=== PATIENT | female | born 1985 | race Caucasian/White ===

== ENCOUNTER → 2017-02-22 09:37 | Emergency (ER) | payer BC ==
--- NOTE | 2017-02-22 10:12 | ED ---
Throat Pain/Nasal Congestion - HPI Summary HPI Summary: 31F presents with burn to left side of face and to left eye. She was poaching an egg and it exploded onto her face. She does not wear contacts or glasses. She admits to tearing and blurry vision of left eye. She washed her eye afterwards. She has not placed anything on the area. She denies any double vision. Pain is minimal when she places ice on the area. She states otherwise it is 5/10. - History of Current Complaint Chief Complaint: EDEyeProblem Time Seen by Provider: 02/22/17 09:52 PMH/Surg Hx/FS Hx/Imm Hx Endocrine/Hematology History: Denies: Hx Anticoagulant Therapy Neurological History: Reports: Hx Migraine Infectious Disease History: Denies: Traveled Outside the [place] in Last 30 Days - Family History Known Family History: Positive: Other - migraine - Social History Alcohol Use: None Substance Use Type: Reports: None Smoking Status (MU): Never Smoked Tobacco Review of Systems Negative: Fever Positive: Blurred Vision, Drainage Negative: Chest Pain Negative: Shortness Of Breath All Other Systems Reviewed And Are Negative: Yes Physical Exam Triage Information Reviewed: Yes Vital Signs On Initial Exam: Initial Vitals Temp Resp BP Pulse Ox 98.6 F 20 143/89 100 02/22/17 09:40 02/22/17 09:40 02/22/17 09:40 02/22/17 09:40 Vital Signs Reviewed: Yes Appearance: Positive: Well-Appearing Skin: Positive: Warm, Dry, Other - superficial burn around left eye Head/Face: Positive: Normal Head/Face Inspection Eyes: Positive: Normal, EOMI, MARIAELENA, Conjunctiva Inflammed, Other: - no uptake on fluorscein exam ENT: Positive: Normal ENT inspection, Pharynx normal, TMs normal Respiratory/Lung Sounds: Positive: Clear to Auscultation, Breath Sounds Present Cardiovascular: Positive: Normal, RRR Diagnostics - Vital Signs Vital Signs Temp Resp BP Pulse Ox 02/22/17 09:40 98.6 F 20 143/89 100 - Laboratory Lab Statement: Any lab studies that have been ordered have been reviewed, and results considered in the medical decision making process. EENT Course/Dx - Course Course Of Treatment: 31F presents with burn to left side of face and to left eye. She was poaching an egg and it exploded onto her face. She does not wear contacts or glasses. She admits to tearing and blurry vision of left eye. She washed her eye afterwards. She has not placed anything on the area. She denies any double vision. on exam superficial burn noted around left eye. no uptake on fluorscein exam. told to use artifical tears and gave pain medication. told to follow up with optho if no improvement. patient understands and agrees with plan. - Differential Diagnoses Differential Diagnoses: Conjunctivitis, Corneal Abrasion, Other - superficial burn - Diagnoses Provider Diagnoses: Superficial burn of face, Eye injury Discharge - Discharge Plan Condition: Good Disposition: HOME Prescriptions: oxyCODONE/Acetamin 5/325 MG* [Percocet 5/325 TAB*] 1 tab PO Q6H PRN #8 tab MDD 4 PRN Reason: Pain Patient Education Materials: Superficial Burn (ED) Referrals: Reid Rios MD [Medical Doctor] - Milena Mesa MD [Primary Care Provider] - Additional Instructions: Use artificial tears to keep eye lubricated Take ibuprofen for pain every 6 hour, use narcotic for break through pain You do not need to apply anything to face at this time as it is just a superficial burn Follow up with optho if no improvement in 2 days Return to ED if develop fever, spreading redness, or any new or worsening symptoms
[2017-02-22 10:48] VITALS: BP 116/69
== END | disposition home or self-care (01) ==
LOC: ED 09:37
DX: T20.10XA Burn of first degree of head, face, and neck, unspecified site, initial encounter (principal); S05.90XA Unspecified injury of unspecified eye and orbit, initial encounter; H53.8 Other visual disturbances; X10.1XXA Contact with hot food, initial encounter; Y93.89 Activity, other specified; Y92.9 Unspecified place or not applicable
CPT/HCPCS: 99282

== ENCOUNTER → 2018-08-14 15:44 | Emergency (ER) | payer BC ==
[~2018-08-14 15:44] MED LIST: HYDROmorphone INJ1* 1 MG/ML SYRINGE IV SLOW PU ONE; NS 0.9% 1000 ML** 1,000 ML IV ONE; Ondansetron INJ* 2 MG/ML VIAL IV ONE; PROCHLORPERAZINE INJ 5 MG/ML 2 ML VIAL IV PRN; PROCHLORPERAZINE INJ 5 MG/ML 2 ML VIAL ONE
--- NOTE | 2018-08-14 16:00 | ED ---
Syncope/Near Syncope - HPI Summary HPI Summary: A 32 y/o female presents to [facility] with a chief complaint of abdominal cramping after she was given contrast for imaging the afternoon of 08/14/18. In the room the patient had a HR of 50bpm and a BP of 104/58. She claims that her HR usually runs in the 70s and her normal BP is 120/80. Per triage note, "Pt was CAT call during CT. Reports she had severe abd cramping after injeciton of CT contrast that caused her to have vagal effect. Hypotension initially upon team arrival. Denies LOC." She rates her pain as a 6/10 in severity. - History Of Current Complaint Chief Complaint: EDSyncope Time Seen by Provider: 08/14/18 15:46 Hx Obtained From: Patient Onset/Duration: Sudden Onset, Lasting Minutes, Still Present Timing: Minutes Context: Witnessed Activity At Onset: Other - getting IV contrast Alleviating Factor(s): Nothing Associated Signs And Symptoms: Negative - LOC, Other - Positive: hypotensive - Allergies/Home Medications Allergies/Adverse Reactions: Allergies Allergy/AdvReac Type Severity Reaction Status Date / Time No Known Allergies Allergy Verified 08/14/18 18:32 PMH/Surg Hx/FS Hx/Imm Hx Endocrine/Hematology History: Reports: Hx Anemia Denies: Hx Anticoagulant Therapy, Hx Diabetes Cardiovascular History: Denies: Hx Hypertension, Hx Pacemaker/ICD History: Denies: Hx Renal Disease Musculoskeletal History: Reports: Hx Back Problems Sensory History: Denies: Hx Contacts or Glasses, Hx Hearing Aid Opthamlomology History: Denies: Hx Contacts or Glasses Neurological History: Reports: Hx Migraine, Other Neuro Impairments/Disorders - PAIN CLINIC PT Psychiatric History: Reports: Hx Anxiety Denies: Hx Panic Disorder - Surgical History Surgery Procedure, Year, and Place: discectomy 01/20/2013 - [facility] Infectious Disease History: No Infectious Disease History: Denies: Traveled Outside the [place] in Last 30 Days - Family History Known Family History: Positive: Other - migraine - Social History Alcohol Use: Weekly Alcohol Amount: 5 Substance Use Type: Reports: None Smoking Status (MU): Never Smoked Tobacco Review of Systems Negative: Fever Positive: Other - Positive: hypotensive Positive: Abdominal Pain All Other Systems Reviewed And Are Negative: Yes Physical Exam - Summary Physical Exam Summary: Appearance: The patient is well-nourished in no acute distress and in no acute pain. Skin: The skin is warm and dry and skin color reflects adequate perfusion. HEENT: The head is normocephalic and atraumatic. The pupils are equal and reactive. The conjunctivae are clear and without drainage. Nares are patent and without drainage. Mouth reveals moist mucous membranes and the throat is without erythema and exudate. The external ears are intact. The ear canals are patent and without drainage. The tympanic membranes are intact. Neck: The neck is supple with full range of motion and non-tender. There are no carotid bruits. There is no neck vein distension. Respiratory: Chest is non-tender. Lungs are clear to auscultation and breath sounds are symmetrical and equal. Cardiovascular: Heart is regular rate and rhythm. There is no murmur or rub auscultated. There is no peripheral edema and pulses are symmetrical and equal. Abdomen: The abdomen is soft and non-tender. There are normal bowel sounds heard in all four quadrants and there is no organomegaly palpated. Musculoskeletal: There is no back tenderness noted. Extremities are non-tender with full range of motion. There is good capillary refill. There is no peripheral edema or calf tenderness elicited. Neurological: Patient is alert and oriented to person, place and time. The patient has symmetrical motor strength in all four extremities. Cranial nerves are grossly intact. Deep tendon reflexes are symmetrical and equal in all four extremities. Psychiatric: The patient has an appropriate affect and does not exhibit any anxiety or depression. Triage Information Reviewed: Yes Vital Signs On Initial Exam: Initial Vitals Temp Pulse Resp BP Pulse Ox 97.6 F 47 15 104/58 100 08/14/18 15:45 08/14/18 15:45 08/14/18 15:45 08/14/18 15:45 08/14/18 15:45 Vital Signs Reviewed: Yes Diagnostics - Vital Signs Vital Signs Temp Pulse Resp BP Pulse Ox 08/14/18 15:45 97.6 F 47 15 104/58 100 - Laboratory Result Diagrams: 08/14/18 16:06 Lab Statement: Any lab studies that have been ordered have been reviewed, and results considered in the medical decision making process. Re-Evaluation - Re-Evaluation First Eval Re-Evaluation Time: 18:00 Change: Improved Comment: patient is ready for discharge Course/Dx Course Of Treatment: Ms. Martin presented with what appeared to be a vagal reaction after a painful procedure. She was apparently syncopal, CAT team was called and she was transferred to the emergency department. She was bradycardic and diaphoretic on arrival. She was complaining of pain and nausea. She was given IV fluids and Zofran prior to arrival here. IV fluids and Zofran were repeated as well as Dilaudid for her pain. She improved somewhat in terms of her pain but continued to be nauseated with a heart rate in the 60s. She is given Compazine for nausea additionally and improved. Her heart rate was up into the 70s which she says is her baseline and she would no longer felt ill or faint. She was discharged in stable condition. - Diagnoses Provider Diagnoses: Vasovagal syncope Discharge - Sign-Out/Discharge Documenting (check all that apply): Patient Departure - DC Patient Received Moderate/Deep Sedation with Procedure: No - Discharge Plan Condition: Stable Disposition: HOME Referrals: Milena Mesa MD [Primary Care Provider] - (2-3 days) Additional Instructions: Return to the ED if you experience any new or worsening symptoms. - Billing Disposition and Condition Condition: STABLE Disposition: Home - Attestation Statements Document Initiated by Scribe: Yes Documenting Scribe: Pawan Simpson Provider For Whom Tyler is Documenting (Include Credential): Ian Martinez MD Scribe Attestation: Pawan Schilling, scribed for Ian Martinez MD on 08/14/18 at 1835. Scribe Documentation Reviewed: Yes Provider Attestation: The documentation as recorded by the Pawan yanez accurately reflects the service I personally performed and the decisions made by me, Ian Martinez MD Status of Scribe Document: Viewed
[2018-08-14 16:17] LABS: ABS Basophils 0.1 10^3/ul (0-0.2); ABS Eosinophils 0.2 10^3/ul (0-0.6); ABS Lymphocytes 3.1 10^3/ul (1.0-4.8); ABS Monocytes 0.6 10^3/ul (0-0.8); ABS Nucleated RBC 0 10^3/ul; Eosinophil % 3.2 %; Hematocrit 35 % (35-47); Lymphocyte % 44.1 %; Mean Corpuscular HGB Conc 34 g/dl (31-36); Mean Corpuscular Hemoglobin 29 pg (27-31); Mean Corpuscular Volume 87 fL (80-97); Mean Platelet Volume 8.5 fL (7.4-10.4); Nucleated Red Blood Cells % 0.1; Platelet Count 301 10^3/ul (150-450); Red Blood Count 4.08 10^6/ul (4.00-5.40); Red Cell Distribution Width 13 % (10.5-15); White Blood Count 6.9 10^3/ul (3.5-10.8)
[2018-08-14 18:29] VITALS: BP 108/55
== END | disposition home or self-care (01) ==
LOC: ED 15:44
DX: R55 Syncope and collapse (principal); R11.0 Nausea; R10.9 Unspecified abdominal pain
CPT/HCPCS: 36415; 84702; 85025; 96374; 96375; 99282; J0780; J1170; J2405

== ENCOUNTER 2023-05-01 16:13 | Observation (INO) ==
[2023-05-01] MEDS ORDERED: NS 0.9% 1000 ml BAG 1,000 ML IV ONE (16:17)
[2023-05-01] MEDS ORDERED: Ondansetron 4 mg VIAL 2 MG/ML 2 ml VIAL ONE (16:29)
[2023-05-01] MEDS ORDERED: Lactated Ringers 1000 ml BAG 1,000 ML IV ONE (17:50)
[2023-05-01 18:01] LABS: ABS Lymphocytes 0.8 10^3/uL (1.0-4.8); ABS Neutrophils 1.9 10^3/uL (1.5-7.6); ABS Nucleated RBC 0.02 10^3/ul; Eosinophil % 0.9 %; Hematocrit 24.5 % (35-45); Hemoglobin 8.3 g/dL (11.5-14.3); Lymphocyte % 27.7 %; Mean Corpuscular Hgb Conc 33.7 g/dL (31-36); Mean Corpuscular Volume 86.1 fL (80-97); Mean Platelet Volume 7.9 fL (7.5-11.2); Nucleated Red Blood Cells % 0.7 %/100WBC (0.0-0.8); Platelet Count 177 10^3/uL (150-450); Red Blood Count 2.85 10^6/uL (3.63-4.92); Red Cell Distribution Width 13.3 % (12-17); White Blood Count 2.8 10^3/uL (3.8-11.8)
[2023-05-01 18:24] LABS: ALT 7 U/L (7-52); AST 13 U/L (13-39); Albumin 1.8 g/dL (3.2-5.2); Albumin/Globulin Ratio 1.5 (1-3); Alkaline Phosphatase 43 U/L (35-149); Blood Urea Nitrogen 10 mg/dL (6-24); Calcium 6.7 mg/dL (8.6-10.3); Chloride 104 mmol/L (101-111); Creatinine, Serum 0.35 mg/dL (0.51-0.95); Globulin 1.2 g/dL (2-4); Glucose 58 mg/dL (70-100); Potassium 3.7 mmol/L (3.5-5.0); Sodium 133 mmol/L (135-145); eGFR CKD-EPI 133.3 (>60)
[2023-05-01 18:26] LABS: Anion Gap 15 mmol/L (2-16); CO2 Carbon Dioxide 14 mmol/L (22-32); Magnesium 0.6 mg/dL (1.9-2.7)
[2023-05-01] MEDS ORDERED: Magnesium Sulfate 2 gm BAG 2 GM/50 ML BAG IVPB ONE (18:34)
[2023-05-01] MEDS ORDERED: Dextrose 50% Syringe 50 ml 25 GM/50 ML SYRINGE IV PUSH ONE (18:35)
[2023-05-01] MEDS ORDERED: Ondansetron 4 mg VIAL 2 MG/ML 2 ml VIAL IV ONE (18:40)
[2023-05-01 18:53] LABS: HCG Pregnancy < 0.60 mIU/mL
[2023-05-01] MEDS ORDERED: Metoclopramide 5 MG/ML VIAL (10 mg) IV ONE (19:18)
[2023-05-01] MEDS ORDERED: Magnesium Sulf 4 GM/100 ML IV 4,000 MG/100 ML BAG IVPB ONE (19:49)
[2023-05-01] MEDS ORDERED: Iohexol 350 (CONTRAST) 500 ML MDV IV ONE (21:11)
[2023-05-01] MEDS ORDERED: Ondansetron 4 mg VIAL 2 MG/ML 2 ml VIAL IV PRN (22:41)
[2023-05-01 23:00] LABS: Venous Bicarbonate HCO3 24.9 mmol/L (24-28)
[2023-05-01 23:02] LABS: Hemoglobin 12.2 g/dL (11.5-14.3); Mean Corpuscular Hemoglobin 28.4 pg (27-33); Mean Corpuscular Hgb Conc 33.8 g/dL (31-36); Mean Corpuscular Volume 84.1 fL (80-97); Mean Platelet Volume 8.5 fL (7.5-11.2); Platelet Count 362 10^3/uL (150-450); Red Blood Count 4.28 10^6/uL (3.63-4.92); Red Cell Distribution Width 13.7 % (12-17)
[2023-05-01 23:24] LABS: Albumin 3.8 g/dL (3.2-5.2); Calcium 8.5 mg/dL (8.6-10.3); Magnesium 1.6 mg/dL (1.9-2.7); Potassium 3.5 mmol/L (3.5-5.0); Total Bilirubin 0.3 mg/dL (0.2-1.0)
[2023-05-01 23:30] LABS: Albumin/Globulin Ratio 1.5 (1-3); C Reactive Protein 19.31 mg/L (<8.01); Creatinine, Serum 0.79 mg/dL (0.51-0.95); Globulin 2.5 g/dL (2-4); Total Protein 6.3 g/dL (6.4-8.9); eGFR CKD-EPI 97.5 (>60)
[2023-05-01] MEDS ORDERED: Magnesium Sulfate IV 3 GM in NS 0.9% 100 ml BAG 100 ML IVPB ONE (23:59)
[2023-05-02] MEDS ORDERED: NS 0.9% 1000 ml BAG 1,000 ML IV ONE
[2023-05-02 00:41] LABS: ABS Basophils 0.1 10^3/uL (0.0-0.1); ABS Eosinophils 0.1 10^3/uL (0.0-0.5); ABS Lymphocytes 0.6 10^3/uL (1.0-4.8); ABS Monocytes 0.9 10^3/uL (0.0-0.9); ABS Neutrophils 23.4 10^3/uL (1.5-7.6); ABS Nucleated RBC 0.01 10^3/ul; Eosinophil % 0.2 %; Lymphocyte % 2.3 %; RBC Morphology Normal (Normal)
[2023-05-02] MEDS ORDERED: Potassium EFFERVES 25 meq TAB PO ONE (00:42)
[2023-05-02] MEDS ORDERED: Lactated Ringers 1000 ml BAG 1,000 ML IV ONE ×2 (01:01→13:29)
[2023-05-02 06:50] LABS: Hematocrit 32.5 % (35-45); Hemoglobin 11.2 g/dL (11.5-14.3); Mean Corpuscular Hemoglobin 28.7 pg (27-33); Mean Corpuscular Hgb Conc 34.5 g/dL (31-36); Mean Corpuscular Volume 83.4 fL (80-97); Mean Platelet Volume 8.6 fL (7.5-11.2); Platelet Count 351 10^3/uL (150-450); Red Cell Distribution Width 13.7 % (12-17); White Blood Count 24.6 10^3/uL (3.8-11.8)
[2023-05-02 06:52] LABS: ABS Lymphocytes 1.8 10^3/uL (1.0-4.8); ABS Monocytes 1.4 10^3/uL (0.0-0.9); ABS Neutrophils 21.3 10^3/uL (1.5-7.6); ABS Nucleated RBC 0.01 10^3/ul; Eosinophil % 0.1 %; Lymphocyte % 7.2 %
[2023-05-02 07:01] LABS: Creatinine, Serum 0.59 mg/dL (0.51-0.95); Magnesium 2.3 mg/dL (1.9-2.7); Potassium 4.9 mmol/L (3.5-5.0); eGFR CKD-EPI 117.5 (>60)
[2023-05-02 14:10] VITALS: BP 107/69
== END 2023-05-02 16:20 | disposition home or self-care (01) ==
LOC: EDHOLD 16:13 → ED 16:13 → SUATTDRO 22:36 → SSU 05-02 04:21
PROVIDERS: ADMIT Internal Medicine; ATTEND Student in an Organized Health Care Education/Training Program